=== PATIENT | female | born 2000 | race Caucasian/White ===

== ENCOUNTER 2019-07-17 20:00 | Emergency (ER) | payer SELFPAY ==
[~2019-07-17] VITALS: Ht 160 cm; Wt 72.7 kg
[2019-07-17 20:01] VITALS: BP 139/84
== END 2019-07-17 22:30 | disposition left against medical advice (07) ==
LOC: M ED 20:00
DX: Z53.21 Procedure and treatment not carried out due to patient leaving prior to being seen by health care provider (principal)